=== PATIENT | male | born 1935 | race Caucasian/White ===

== ENCOUNTER 2018-08-17 13:20 | Observation (INO) | payer MEDICARE, BC ==
[~2018-08-17] VITALS: Ht 175.3 cm; Wt 102.1 kg
[~2018-08-17 13:20] MED LIST: ALBU90OI INH; ALBU90OI61 INH; ATOR20 PO; Advair Hfa 115-12 GM; CIPR500 PO; DOCSEN PO; DOCU100 PO; FINA5 PO; HYDACE5 PO; HYDR1TAB94 PO; LEVFLO500 PO; LISHYD2025 PO; LISI20 PO; MULVITMINF PO; NAPR220 PO; NORT25 PO; OMEPRAZOLE MAGN20 MG PO; OSCAL PO; PRED20 PO; PREG50 PO; PYRI100 PO; Prednisone20 MG PO; SULF500 PO; SULF500A PO; SYMBICORT; TRAM50 PO; TYLENOL PO; Zithromax250 MG PO; [UNRECOGNIZED DRUG - MIXTURE] PO
[2018-08-17 13:58] LABS: BASOPHILS ABSOLUTE AUTO 0.03 K/mm3 (0.00-0.23); BASOPHILS PERCENT AUTO 1 % (0-2); EOSINOPHILS ABSOLUTE AUTO 0.13 K/mm3 (0.00-0.68); EOSINOPHILS PERCENT AUTO 2 % (0-6); Hematocrit 46.5 % (37.0-53.0); Hemoglobin 15.6 g/dL (13.5-17.5); IMMATURE GRAN ABSOLUTE AUTO 0.01 K/mm3 (0.00-0.10); IMMATURE GRAN PERCENT AUTO 0 % (0-1); LYMPHOCYTES ABSOLUTE AUTO 1.27 K/mm3 (0.84-5.20); LYMPHOCYTES PERCENT AUTO 21 % (21-46); MONOCYTES ABSOLUTE AUTO 0.45 K/mm3 (0.16-1.47); MONOCYTES PERCENT AUTO 8 % (4-13); Mean Corpuscular HGB 31.1 pg (26.0-34.0); Mean Corpuscular HGB Conc 33.5 g/dL (31.5-36.5); Mean Corpuscular Volume 93 fL (80-100); Mean Platelet Volume 9.5 fL (9.1-12.4); NEUTROPHILS ABSOLUTE AUTO 4.15 K/mm3 (1.96-9.15); NEUTROPHILS PERCENT AUTO 69 % (41-73); Platelet Count 214 K/mm3 (150-400); Red Blood Cell Count 5.02 M/mm3 (4.30-5.90); White Blood Cell Count 6.04 K/mm3 (4.00-11.30)
[2018-08-17 14:09] LABS: International Normalized Ratio 1.09; Prothrombin Time Results 11.2 Sec (9.7-11.5)
[2018-08-17 14:40] LABS: Alanine Aminotransfer (ALT/SGP 39 U/L (12-78); Alk Phos 109 U/L (50-136); Anion Gap 8 mmol/L (6-16); Aspartate Aminotrans (AST/SGOT 30 U/L (12-37); Bilirubin, Total 0.8 mg/dL (0.1-1.0); Blood Urea Nitrogen 12 mg/dL (8-24); Bun/Creatinine Ratio 12.7 (12.0-20.0); CO2, Blood 26 mmol/L (21-32); Calcium, Blood 8.8 mg/dL (8.5-10.1); Chloride, Blood 106 mmol/L (98-108); Creatinine, Blood 0.94 mg/dL (0.60-1.20); Globulin, Blood 3.9 g/dL (2.2-4.0); Glomerular Filtration Rate >60 (60-); Glucose, Blood 142 mg/dL (70-99); Potassium, Blood 3.7 mmol/L (3.5-5.5); Sodium, Blood 140 mmol/L (136-145); Total Protein, Blood 7.9 g/dL (6.4-8.2)
[2018-08-18 05:08] LABS: BASOPHILS ABSOLUTE AUTO 0.03 K/mm3 (0.00-0.23); BASOPHILS PERCENT AUTO 1 % (0-2); EOSINOPHILS ABSOLUTE AUTO 0.15 K/mm3 (0.00-0.68); EOSINOPHILS PERCENT AUTO 3 % (0-6); Hematocrit 44.4 % (37.0-53.0); Hemoglobin 14.7 g/dL (13.5-17.5); IMMATURE GRAN ABSOLUTE AUTO 0.03 K/mm3 (0.00-0.10); IMMATURE GRAN PERCENT AUTO 1 % (0-1); LYMPHOCYTES ABSOLUTE AUTO 1.79 K/mm3 (0.84-5.20); LYMPHOCYTES PERCENT AUTO 30 % (21-46); MONOCYTES ABSOLUTE AUTO 0.53 K/mm3 (0.16-1.47); MONOCYTES PERCENT AUTO 9 % (4-13); Mean Corpuscular HGB 31.1 pg (26.0-34.0); Mean Corpuscular HGB Conc 33.1 g/dL (31.5-36.5); Mean Corpuscular Volume 94 fL (80-100); Mean Platelet Volume 9.3 fL (9.1-12.4); NEUTROPHILS ABSOLUTE AUTO 3.49 K/mm3 (1.96-9.15); NEUTROPHILS PERCENT AUTO 58 % (41-73); Platelet Count 191 K/mm3 (150-400); RDW Coefficient Variation 13.1 % (11.7-14.2); RDW Standard Deviation 44.9 fL (35.1-46.3); Red Blood Cell Count 4.73 M/mm3 (4.30-5.90); White Blood Cell Count 6.02 K/mm3 (4.00-11.30)
[2018-08-19 04:57] LABS: BASOPHILS ABSOLUTE AUTO 0.03 K/mm3 (0.00-0.23); BASOPHILS PERCENT AUTO 0 % (0-2); EOSINOPHILS ABSOLUTE AUTO 0.09 K/mm3 (0.00-0.68); EOSINOPHILS PERCENT AUTO 1 % (0-6); Hematocrit 46.7 % (37.0-53.0); Hemoglobin 15.2 g/dL (13.5-17.5); IMMATURE GRAN ABSOLUTE AUTO 0.02 K/mm3 (0.00-0.10); IMMATURE GRAN PERCENT AUTO 0 % (0-1); LYMPHOCYTES ABSOLUTE AUTO 1.55 K/mm3 (0.84-5.20); LYMPHOCYTES PERCENT AUTO 23 % (21-46); MONOCYTES ABSOLUTE AUTO 0.61 K/mm3 (0.16-1.47); MONOCYTES PERCENT AUTO 9 % (4-13); Mean Corpuscular HGB Conc 32.5 g/dL (31.5-36.5); Mean Corpuscular Volume 95 fL (80-100); Mean Platelet Volume 9.5 fL (9.1-12.4); NEUTROPHILS ABSOLUTE AUTO 4.52 K/mm3 (1.96-9.15); NEUTROPHILS PERCENT AUTO 66 % (41-73); Platelet Count 205 K/mm3 (150-400); RDW Standard Deviation 45.5 fL (35.1-46.3); Red Blood Cell Count 4.91 M/mm3 (4.30-5.90); White Blood Cell Count 6.82 K/mm3 (4.00-11.30)
[2018-08-19] MEDS ORDERED: AMLO10 PO (14:16)
== END 2018-08-19 16:12 | disposition home or self-care (01) ==
LOC: ER 13:20 → MEDS 13:21 → ER 17:45 → MEDS 17:45 → ERHOLD 17:45 → MEDS 20:03 → ERHOLD 20:03 → MEDS 08-18 01:36 → EDPENDDIS 08-19 07:34 → ENPENDDIS 08-19 07:34 → MEDS 08-19 16:12
PROVIDERS: Emergency Medicine; Internal Medicine; Internal Medicine Gastroenterology
PROC: 0DBL8ZZ Excision of Transverse Colon, Via Natural or Artificial Opening Endoscopic (ICD-10-PCS; principal; 2018-08-19 11:45)
PROC: 0DBK8ZZ Excision of Ascending Colon, Via Natural or Artificial Opening Endoscopic (ICD-10-PCS; principal; 2018-08-19 11:45)
PROC: 0DBH8ZZ Excision of Cecum, Via Natural or Artificial Opening Endoscopic (ICD-10-PCS; principal; 2018-08-19 11:45)
DX: D12.3 Benign neoplasm of transverse colon (principal); D12.2 Benign neoplasm of ascending colon; D12.0 Benign neoplasm of cecum; K57.30 Diverticulosis of large intestine without perforation or abscess without bleeding; K64.8 Other hemorrhoids; G47.33 Obstructive sleep apnea (adult) (pediatric); M06.9 Rheumatoid arthritis, unspecified; I10 Essential (primary) hypertension; E78.5 Hyperlipidemia, unspecified; N40.0 Benign prostatic hyperplasia without lower urinary tract symptoms; J44.9 Chronic obstructive pulmonary disease, unspecified; K21.9 Gastro-esophageal reflux disease without esophagitis; E11.40 Type 2 diabetes mellitus with diabetic neuropathy, unspecified; F32.9 Major depressive disorder, single episode, unspecified; M54.9 Dorsalgia, unspecified; G89.29 Other chronic pain; Z99.89 Dependence on other enabling machines and devices; Z87.891 Personal history of nicotine dependence; Z79.82 Long term (current) use of aspirin; Z79.899 Other long term (current) drug therapy
CPT/HCPCS: 36415; 46600; 80053; 82272; 82947; 85025; 85610; 85730; 86850; 86900; 86901; 88305; 93005; 93010; 94660; 94762; 99284-25; G0378; J7120

== ENCOUNTER 2018-12-29 10:17 | Day surgery (SDC) | payer MEDICARE, BC ==
[~2018-12-29] VITALS: Ht 165.1 cm; Wt 105.9 kg
[~2018-12-29 10:17] MED LIST changes: +AMLO10 PO; +FINA5; +SERT50; +TAMS.4ER
== END 2018-12-29 12:07 | disposition home or self-care (01) ==
LOC: ORSCSDS 10:17
PROVIDERS: Internal Medicine Gastroenterology
PROC: 0DBK8ZX Excision of Ascending Colon, Via Natural or Artificial Opening Endoscopic, Diagnostic (ICD-10-PCS; principal; 2018-12-29 11:30)
PROC: 0DBL8ZX Excision of Transverse Colon, Via Natural or Artificial Opening Endoscopic, Diagnostic (ICD-10-PCS; principal; 2018-12-29 11:30)
DX: K57.30 Diverticulosis of large intestine without perforation or abscess without bleeding (principal); D12.2 Benign neoplasm of ascending colon; D12.3 Benign neoplasm of transverse colon; K64.8 Other hemorrhoids; Z86.010 Personal history of colon polyps; G47.33 Obstructive sleep apnea (adult) (pediatric); I10 Essential (primary) hypertension; E78.5 Hyperlipidemia, unspecified; J44.9 Chronic obstructive pulmonary disease, unspecified; E11.9 Type 2 diabetes mellitus without complications; K21.9 Gastro-esophageal reflux disease without esophagitis; Z87.891 Personal history of nicotine dependence; E66.01 Morbid (severe) obesity due to excess calories; Z68.36 Body mass index [BMI] 36.0-36.9, adult; Z79.899 Other long term (current) drug therapy
CPT/HCPCS: 88305; J7120

== ENCOUNTER → 2019-04-12 | Outpatient (CLI) | payer MEDICARE, BC ==
[~2019-04-12] MED LIST changes: +LEVO750 PO; +POTA20PAC PO
== END | disposition home or self-care (01) ==
LOC: LAB SHORT 14:56 → PLD 14:56
DX: D48.5 Neoplasm of uncertain behavior of skin (principal)
CPT/HCPCS: 88305

== ENCOUNTER → 2019-05-31 | Outpatient (CLI) | payer MEDICARE, BC | END | disposition home or self-care (01) | LOC: LAB SHORT 08:00 → PLD 08:00 | DX: D48.5 Neoplasm of uncertain behavior of skin (principal) | CPT/HCPCS: 88305 ==

== ENCOUNTER 2019-06-20 14:13 | Emergency (ER) | payer MEDICARE, BC ==
[~2019-06-20] VITALS: Ht 175.3 cm; Wt 102.1 kg
[~2019-06-20 14:13] MED LIST changes: -LEVO750 PO; -POTA20PAC PO
[2019-06-20 14:57] LABS: BASOPHILS ABSOLUTE AUTO 0.02 K/mm3 (0.00-0.23); BASOPHILS PERCENT AUTO 0 % (0-2); EOSINOPHILS ABSOLUTE AUTO 0.01 K/mm3 (0.00-0.68); EOSINOPHILS PERCENT AUTO 0 % (0-6); Hematocrit 47.9 % (37.0-53.0); IMMATURE GRAN ABSOLUTE AUTO 0.06 K/mm3 (0.00-0.10); IMMATURE GRAN PERCENT AUTO 1 % (0-1); LYMPHOCYTES ABSOLUTE AUTO 1.32 K/mm3 (0.84-5.20); LYMPHOCYTES PERCENT AUTO 14 % (21-46); MONOCYTES PERCENT AUTO 9 % (4-13); Mean Corpuscular HGB 30.8 pg (26.0-34.0); Mean Corpuscular HGB Conc 33.4 g/dL (31.5-36.5); Mean Corpuscular Volume 92 fL (80-100); Mean Platelet Volume 9.2 fL (9.1-12.4); NEUTROPHILS ABSOLUTE AUTO 7.43 K/mm3 (1.96-9.15); NEUTROPHILS PERCENT AUTO 76 % (41-73); Platelet Count 289 K/mm3 (150-400); RDW Coefficient Variation 12.9 % (11.7-14.2); RDW Standard Deviation 43.5 fL (35.1-46.3); White Blood Cell Count 9.74 K/mm3 (4.00-11.30)
[2019-06-20 15:20] LABS: Alanine Aminotransfer (ALT/SGP 56 U/L (12-78); Albumin, Blood 4.3 g/dL (3.4-5.0); Alk Phos 111 U/L (50-136); Anion Gap 8 mmol/L (6-16); Aspartate Aminotrans (AST/SGOT 42 U/L (12-37); Bilirubin, Total 0.7 mg/dL (0.1-1.0); Blood Urea Nitrogen 17 mg/dL (8-24); Bun/Creatinine Ratio 18.7 (12.0-20.0); CO2, Blood 24 mmol/L (21-32); Chloride, Blood 105 mmol/L (98-108); Creatinine, Blood 0.91 mg/dL (0.60-1.20); Globulin, Blood 4.1 g/dL (2.2-4.0); Glomerular Filtration Rate >60 (60-); Glucose, Blood 210 mg/dL (70-99); Potassium, Blood 3.4 mmol/L (3.5-5.5); Sodium, Blood 137 mmol/L (136-145); Total Protein, Blood 8.4 g/dL (6.4-8.2); Troponin I <0.015 ng/mL (0.000-0.040)
[2019-06-20] MEDS ORDERED: POTA20PAC PO (16:21)
[2019-06-20] MEDS ORDERED: LEVO750 PO (16:21)
== END 2019-06-20 16:36 | disposition home or self-care (01) ==
LOC: ER 14:13
PROVIDERS: Physician Assistant
DX: J18.9 Pneumonia, unspecified organism (principal); E87.6 Hypokalemia; Z79.899 Other long term (current) drug therapy; J44.9 Chronic obstructive pulmonary disease, unspecified; E11.9 Type 2 diabetes mellitus without complications
CPT/HCPCS: 36415; 71046; 80053; 83880; 84484; 85025; 93005; 93010; 99285-25

== ENCOUNTER 2019-08-25 11:14 | Emergency (ER) | payer MEDICARE, BC ==
[~2019-08-25] VITALS: Ht 175.3 cm; Wt 102.1 kg
[~2019-08-25 11:14] MED LIST changes: +LEVO750 PO; +POTA20PAC PO
== END 2019-08-25 13:28 | disposition home or self-care (01) ==
LOC: ER 11:14
DX: M25.561 Pain in right knee (principal); Z79.899 Other long term (current) drug therapy; J44.9 Chronic obstructive pulmonary disease, unspecified; E11.9 Type 2 diabetes mellitus without complications; Z87.891 Personal history of nicotine dependence
CPT/HCPCS: 73562-RT; 99283-25

== ENCOUNTER 2020-05-20 19:19 | Emergency (ER) | payer MEDICARE, BC ==
[~2020-05-20] VITALS: Ht 175.3 cm; Wt 104.3 kg
[2020-05-20 20:01] LABS: BASOPHILS ABSOLUTE AUTO 0.02 K/mm3 (0.00-0.23); BASOPHILS PERCENT AUTO 0 % (0-2); EOSINOPHILS PERCENT AUTO 1 % (0-6); Hematocrit 49.2 % (37.0-53.0); Hemoglobin 16.2 g/dL (13.5-17.5); IMMATURE GRAN ABSOLUTE AUTO 0.03 K/mm3 (0.00-0.10); IMMATURE GRAN PERCENT AUTO 0 % (0-1); LYMPHOCYTES ABSOLUTE AUTO 1.41 K/mm3 (0.84-5.20); LYMPHOCYTES PERCENT AUTO 17 % (21-46); MONOCYTES ABSOLUTE AUTO 0.63 K/mm3 (0.16-1.47); MONOCYTES PERCENT AUTO 8 % (4-13); Mean Corpuscular HGB 30.8 pg (26.0-34.0); Mean Corpuscular HGB Conc 32.9 g/dL (31.5-36.5); Mean Corpuscular Volume 94 fL (80-100); Mean Platelet Volume 9.6 fL (9.1-12.4); NEUTROPHILS ABSOLUTE AUTO 6.21 K/mm3 (1.96-9.15); NEUTROPHILS PERCENT AUTO 74 % (41-73); Platelet Count 178 K/mm3 (150-400); RDW Coefficient Variation 13.2 % (11.7-14.2); RDW Standard Deviation 44.8 fL (35.1-46.3); Red Blood Cell Count 5.26 M/mm3 (4.30-5.90)
[2020-05-20 20:19] LABS: Alanine Aminotransfer (ALT/SGP 49 U/L (12-78); Albumin, Blood 4.1 g/dL (3.4-5.0); Albumin/Globulin Ratio 1.1 (0.8-1.8); Alk Phos 86 U/L (50-136); Anion Gap 6 mmol/L (6-16); Aspartate Aminotrans (AST/SGOT 34 U/L (12-37); Bilirubin, Total 0.5 mg/dL (0.1-1.0); Blood Urea Nitrogen 19 mg/dL (8-24); Bun/Creatinine Ratio 18.8 (12.0-20.0); CO2, Blood 27 mmol/L (21-32); Calcium, Blood 9.2 mg/dL (8.5-10.1); Chloride, Blood 109 mmol/L (98-108); Creatinine, Blood 1.01 mg/dL (0.60-1.20); Globulin, Blood 3.9 g/dL (2.2-4.0); Glomerular Filtration Rate >60 (60-); Glucose, Blood 147 mg/dL (70-99); Sodium, Blood 142 mmol/L (136-145)
[2020-05-20 20:31] LABS: Source, Urine Clean Catch
[2020-05-20 20:34] LABS: Blood, Urine 1+ (Neg); Glucose Qualitative, Urine Neg (Neg); Ketones, Urine 1+ (Neg); Leukocyte Esterase, Urine 1+ (Neg); Nitrite, Urine Neg (Neg); Protein, Urine 3+ (Neg); Specific Gravity, Urine 1.025 (1.003-1.022); Urobilinogen, Urine NORM (Normal)
[2020-05-20 20:41] LABS: Appearance, Urine Clear (Clear); Bilirubin, Urine 1+ (Neg); Color, Urine Yellow (P-Yellow); White Blood Cells, Urine 0-2 /hpf (0-5)
[2020-05-20 20:42] LABS: Bacteria Rare /hpf; Mucus Mod (0-Heavy); Red Blood Cells, Urine Not Seen /hpf (0-2); Squamous Epithelial Cells Rare /hpf (Few)
[2020-05-20] MEDS ORDERED: Cipro500 MG PO (23:21)
[2020-05-20] MEDS ORDERED: ONDA4ODT MM (23:21)
[2020-05-20] MEDS ORDERED: Ultram50 MG PO (23:21)
== END 2020-05-20 23:38 | disposition home or self-care (01) ==
LOC: ER 19:19
PROVIDERS: Emergency Medicine
DX: A09 Infectious gastroenteritis and colitis, unspecified (principal); Z79.899 Other long term (current) drug therapy; J44.9 Chronic obstructive pulmonary disease, unspecified; E11.9 Type 2 diabetes mellitus without complications; Z87.891 Personal history of nicotine dependence
CPT/HCPCS: 36415; 71045; 80053; 81001; 85025; 87086; 96360; 99284-25; J7030; U0002

== ENCOUNTER → 2020-07-24 | Outpatient (CLI) | payer MEDICARE, BC ==
[~2020-07-24] MED LIST changes: +Cipro500 MG PO; +DOXY100 PO; +ONDA4ODT MM; +Ultram50 MG PO
== END | disposition home or self-care (01) ==
LOC: PLD 15:45 → LAB SHORT 15:45
DX: C44.41 Basal cell carcinoma of skin of scalp and neck (principal)
CPT/HCPCS: 88305

== ENCOUNTER → 2020-09-28 | Outpatient (CLI) | payer MEDICARE, BC ==
[2020-09-28 17:06] LABS: BASOPHILS ABSOLUTE AUTO 0.03 K/mm3 (0.00-0.23); BASOPHILS PERCENT AUTO 1 % (0-2); EOSINOPHILS ABSOLUTE AUTO 0.14 K/mm3 (0.00-0.68); EOSINOPHILS PERCENT AUTO 2 % (0-6); Hematocrit 45.7 % (37.0-53.0); Hemoglobin 15.5 g/dL (13.5-17.5); IMMATURE GRAN ABSOLUTE AUTO 0.01 K/mm3 (0.00-0.10); IMMATURE GRAN PERCENT AUTO 0 % (0-1); LYMPHOCYTES ABSOLUTE AUTO 1.28 K/mm3 (0.84-5.20); LYMPHOCYTES PERCENT AUTO 20 % (21-46); MONOCYTES ABSOLUTE AUTO 0.61 K/mm3 (0.16-1.47); MONOCYTES PERCENT AUTO 9 % (4-13); Mean Corpuscular HGB 31.4 pg (26.0-34.0); Mean Corpuscular HGB Conc 33.9 g/dL (31.5-36.5); Mean Corpuscular Volume 93 fL (80-100); Mean Platelet Volume 9.6 fL (9.1-12.4); NEUTROPHILS ABSOLUTE AUTO 4.45 K/mm3 (1.96-9.15); NEUTROPHILS PERCENT AUTO 68 % (41-73); Platelet Count 249 K/mm3 (150-400); RDW Coefficient Variation 12.9 % (11.7-14.2); Red Blood Cell Count 4.94 M/mm3 (4.30-5.90); White Blood Cell Count 6.52 K/mm3 (4.00-11.30)
[2020-09-28 17:12] LABS: Anion Gap 8 mmol/L (6-16); Blood Urea Nitrogen 13 mg/dL (8-24); Bun/Creatinine Ratio 13.7 (12.0-20.0); CO2, Blood 29 mmol/L (21-32); Calcium, Blood 9.2 mg/dL (8.5-10.1); Chloride, Blood 103 mmol/L (98-108); Creatinine, Blood 0.95 mg/dL (0.60-1.20); Glomerular Filtration Rate >60 (60-); Glucose, Blood 163 mg/dL (70-99); Potassium, Blood 3.7 mmol/L (3.5-5.5); Sodium, Blood 140 mmol/L (136-145)
== END | disposition home or self-care (01) ==
LOC: LAB EV 16:58 → LAB SHORT 16:58
PROVIDERS: Physician Assistant Surgical
DX: R05 Cough (principal)
CPT/HCPCS: 80048; 85025

== ENCOUNTER → 2021-01-08 | Outpatient (CLI) | payer MEDICARE, BC | END | disposition home or self-care (01) | LOC: LAB SHORT 08:15 → PLD 08:15 | DX: C44.41 Basal cell carcinoma of skin of scalp and neck (principal) | CPT/HCPCS: 88305 ==

== ENCOUNTER → 2021-02-13 | Outpatient (CLI) | payer MEDICARE, BC | LOC: LAB SHORT 09:20 → PLD 09:20 | DX: C44.41 Basal cell carcinoma of skin of scalp and neck (principal) | CPT/HCPCS: 88305 ==

== ENCOUNTER → 2021-04-24 | Outpatient (CLI) | payer MEDICARE, BC | LOC: LAB SHORT 14:47 → LAB 14:47 | DX: C44.519 Basal cell carcinoma of skin of other part of trunk (principal) | CPT/HCPCS: 88305 ==

== ENCOUNTER → 2021-12-31 | Outpatient (CLI) | payer MEDICARE, BC ==
[2021-12-31 17:51] LABS: BASOPHILS ABSOLUTE AUTO 0.01 K/mm3 (0.00-0.23); BASOPHILS PERCENT AUTO 0 % (0-2); EOSINOPHILS ABSOLUTE AUTO 0.09 K/mm3 (0.00-0.68); EOSINOPHILS PERCENT AUTO 1 % (0-6); Hematocrit 41.8 % (37.0-53.0); Hemoglobin 14.4 g/dL (13.5-17.5); IMMATURE GRAN ABSOLUTE AUTO 0.08 K/mm3 (0.00-0.10); IMMATURE GRAN PERCENT AUTO 1 % (0-1); LYMPHOCYTES ABSOLUTE AUTO 0.89 K/mm3 (0.84-5.20); LYMPHOCYTES PERCENT AUTO 8 % (21-46); MONOCYTES ABSOLUTE AUTO 0.59 K/mm3 (0.16-1.47); MONOCYTES PERCENT AUTO 5 % (4-13); Mean Corpuscular HGB 32.4 pg (26.0-34.0); Mean Corpuscular HGB Conc 34.4 g/dL (31.5-36.5); Mean Corpuscular Volume 94 fL (80-100); NEUTROPHILS ABSOLUTE AUTO 9.23 K/mm3 (1.96-9.15); NEUTROPHILS PERCENT AUTO 85 % (41-73); Platelet Count 236 K/mm3 (150-400); RDW Coefficient Variation 12.6 % (11.7-14.2); RDW Standard Deviation 43.2 fL (35.1-46.3); Red Blood Cell Count 4.45 M/mm3 (4.30-5.90); White Blood Cell Count 10.89 K/mm3 (4.00-11.30)
[2021-12-31 18:09] LABS: Alanine Aminotransfer (ALT/SGP 45 U/L (12-78); Albumin, Blood 4.6 g/dL (3.4-5.0); Albumin/Globulin Ratio 1.7 (0.8-1.8); Alk Phos 90 U/L (40-126); Anion Gap 12 mmol/L (6-16); Aspartate Aminotrans (AST/SGOT 26 U/L (12-37); Bilirubin, Total 0.5 mg/dL (0.1-1.0); Blood Urea Nitrogen 25 mg/dL (8-24); CO2, Blood 26 mmol/L (21-32); Calcium, Blood 9.2 mg/dL (8.5-10.1); Chloride, Blood 105 mmol/L (98-108); Creatinine, Blood 1.04 mg/dL (0.60-1.20); Globulin, Blood 2.7 g/dL (2.2-4.0); Glomerular Filtration Rate >60 (60-); Glucose, Blood 117 mg/dL (70-99); Potassium, Blood 4.4 mmol/L (3.5-5.5); Sodium, Blood 143 mmol/L (136-145); Thyroid Stimulating Hormone 2.692 uIU/mL (0.360-4.800); Total Protein, Blood 7.3 g/dL (6.4-8.2)
== END | disposition home or self-care (01) ==
LOC: LAB SHORT 17:46
PROVIDERS: Physician Assistant
DX: R53.83 Other fatigue (principal)
CPT/HCPCS: 80053; 84443; 85025

== ENCOUNTER 2022-01-23 15:40 | Emergency (ER) | payer MEDICARE, BC ==
[~2022-01-23] VITALS: Ht 175.3 cm; Wt 102.1 kg
[2022-01-23 16:27] LABS: BASOPHILS ABSOLUTE AUTO 0.03 K/mm3 (0.00-0.23); BASOPHILS PERCENT AUTO 0 % (0-2); EOSINOPHILS ABSOLUTE AUTO 0.16 K/mm3 (0.00-0.68); EOSINOPHILS PERCENT AUTO 2 % (0-6); Hematocrit 43.2 % (37.0-53.0); Hemoglobin 14.5 g/dL (13.5-17.5); IMMATURE GRAN ABSOLUTE AUTO 0.05 K/mm3 (0.00-0.10); IMMATURE GRAN PERCENT AUTO 1 % (0-1); LYMPHOCYTES ABSOLUTE AUTO 1.16 K/mm3 (0.84-5.20); LYMPHOCYTES PERCENT AUTO 14 % (21-46); MONOCYTES PERCENT AUTO 6 % (4-13); Mean Corpuscular HGB 31.8 pg (26.0-34.0); Mean Corpuscular HGB Conc 33.6 g/dL (31.5-36.5); Mean Corpuscular Volume 95 fL (80-100); Mean Platelet Volume 9.3 fL (9.1-12.4); NEUTROPHILS ABSOLUTE AUTO 6.36 K/mm3 (1.96-9.15); NEUTROPHILS PERCENT AUTO 77 % (41-73); Platelet Count 225 K/mm3 (150-400); RDW Standard Deviation 45.1 fL (35.1-46.3); Red Blood Cell Count 4.56 M/mm3 (4.30-5.90); White Blood Cell Count 8.26 K/mm3 (4.00-11.30)
[2022-01-23 16:50] LABS: Alanine Aminotransfer (ALT/SGP 42 U/L (12-78); Albumin, Blood 4.4 g/dL (3.4-5.0); Albumin/Globulin Ratio 1.3 (0.8-1.8); Alk Phos 77 U/L (50-136); Anion Gap 4 mmol/L (6-16); Aspartate Aminotrans (AST/SGOT 32 U/L (12-37); Bilirubin, Total 0.7 mg/dL (0.1-1.0); Blood Urea Nitrogen 23 mg/dL (8-24); Bun/Creatinine Ratio 21.5 (12.0-20.0); CO2, Blood 26 mmol/L (21-32); Calcium, Blood 9.2 mg/dL (8.5-10.1); Chloride, Blood 107 mmol/L (98-108); Creatinine, Blood 1.07 mg/dL (0.60-1.20); Globulin, Blood 3.3 g/dL (2.2-4.0); Glomerular Filtration Rate >60 (60-); Glucose, Blood 151 mg/dL (70-99); Potassium, Blood 4.4 mmol/L (3.5-5.5); Sodium, Blood 137 mmol/L (136-145); Total Protein, Blood 7.7 g/dL (6.4-8.2)
[2022-01-23] MEDS ORDERED: OMEP20ER (17:30)
[2022-01-24] MEDS ORDERED: ANORO ELLIPTA1 EAC1 INH (09:44)
[2022-01-24] MEDS ORDERED: FINA5 PO (09:45)
[2022-01-24] MEDS ORDERED: Prinivil10 MG PO (09:45)
[2022-01-24] MEDS ORDERED: ZOLOFT100 M9 PO (09:47)
[2022-01-24] MEDS ORDERED: PREGABALIN75 MG PO (09:49)
[2022-01-24] MEDS ORDERED: TRAM50 PO (09:50)
[2022-01-24] MEDS ORDERED: ATOR40TA PO (09:51)
[2022-01-24] MEDS ORDERED: TAMSULOSIN HCL0.4 M1 PO (09:52)
[2022-01-24] MEDS ORDERED: Prilosec Otc20 MG PO (09:52)
== END 2022-01-23 18:06 | disposition home or self-care (01) ==
LOC: ER 15:40
PROVIDERS: Physician Assistant
DX: E87.8 Other disorders of electrolyte and fluid balance, not elsewhere classified (principal); E11.9 Type 2 diabetes mellitus without complications; J44.9 Chronic obstructive pulmonary disease, unspecified; Z87.891 Personal history of nicotine dependence; Z79.899 Other long term (current) drug therapy
CPT/HCPCS: 36415; 70450; 80053; 85025; 99284-25

== ENCOUNTER 2022-01-24 08:56 | Emergency (ER) | payer MEDICARE, BC ==
[~2022-01-24] VITALS: Ht 175.3 cm; Wt 102.1 kg
[~2022-01-24 08:56] MED LIST changes: +OMEP20ER
[2022-01-24] MEDS ORDERED: ANORO ELLIPTA1 EAC1 INH (09:44)
[2022-01-24] MEDS ORDERED: Prinivil10 MG PO (09:45)
[2022-01-24] MEDS ORDERED: FINA5 PO (09:45)
[2022-01-24] MEDS ORDERED: ZOLOFT100 M9 PO (09:47)
[2022-01-24] MEDS ORDERED: PREGABALIN75 MG PO (09:49)
[2022-01-24] MEDS ORDERED: TRAM50 PO (09:50)
[2022-01-24] MEDS ORDERED: ATOR40TA PO (09:51)
[2022-01-24] MEDS ORDERED: TAMSULOSIN HCL0.4 M1 PO (09:52)
[2022-01-24] MEDS ORDERED: Prilosec Otc20 MG PO (09:52)
== END 2022-01-24 10:51 | disposition home or self-care (01) ==
LOC: ER 08:56
DX: E87.8 Other disorders of electrolyte and fluid balance, not elsewhere classified (principal); J44.9 Chronic obstructive pulmonary disease, unspecified; E11.9 Type 2 diabetes mellitus without complications; Z87.891 Personal history of nicotine dependence
CPT/HCPCS: 99281

== ENCOUNTER → 2022-05-19 | Outpatient (CLI) | payer MEDICARE, BC ==
[~2022-05-19] MED LIST changes: +ANORO ELLIPTA1 EAC1 INH; +ATOR40TA PO; +PREGABALIN75 MG PO; +Prilosec Otc20 MG PO; +Prinivil10 MG PO; +TAMSULOSIN HCL0.4 M1 PO; +ZOLOFT100 M9 PO
== END | disposition home or self-care (01) ==
LOC: LAB SHORT 08:02 → PLD 08:02
DX: C44.41 Basal cell carcinoma of skin of scalp and neck (principal)
CPT/HCPCS: 88305

== ENCOUNTER → 2022-06-09 | Outpatient (CLI) | payer MEDICARE, BC | END | disposition home or self-care (01) | LOC: PLD 15:42 → LAB SHORT 15:42 | DX: C44.41 Basal cell carcinoma of skin of scalp and neck (principal) | CPT/HCPCS: 88305 ==

== ENCOUNTER → 2023-01-28 | Outpatient (CLI) | payer MEDICARE, BC | END | disposition home or self-care (01) | LOC: PLD 14:40 → LAB SHORT 14:40 | DX: C44.319 Basal cell carcinoma of skin of other parts of face (principal); L57.0 Actinic keratosis | CPT/HCPCS: 88305 ==

== ENCOUNTER → 2023-06-10 | Outpatient (CLI) | payer MEDICARE, BC ==
[2023-06-10 16:18] LABS: BASOPHILS ABSOLUTE AUTO 0.03 K/mm3 (0.00-0.23); BASOPHILS PERCENT AUTO 0 % (0-2); EOSINOPHILS ABSOLUTE AUTO 0.11 K/mm3 (0.00-0.68); EOSINOPHILS PERCENT AUTO 1 % (0-6); Hematocrit 44.1 % (37.0-53.0); Hemoglobin 15.4 g/dL (13.5-17.5); IMMATURE GRAN ABSOLUTE AUTO 0.22 K/mm3 (0.00-0.10); IMMATURE GRAN PERCENT AUTO 2 % (0-1); LYMPHOCYTES ABSOLUTE AUTO 1.19 K/mm3 (0.84-5.20); LYMPHOCYTES PERCENT AUTO 11 % (21-46); MONOCYTES ABSOLUTE AUTO 0.83 K/mm3 (0.16-1.47); MONOCYTES PERCENT AUTO 8 % (4-13); Mean Corpuscular HGB 32.1 pg (26.0-34.0); Mean Corpuscular HGB Conc 34.9 g/dL (31.5-36.5); Mean Corpuscular Volume 92 fL (80-100); Mean Platelet Volume 9.1 fL (9.1-12.4); NEUTROPHILS PERCENT AUTO 78 % (41-73); Platelet Count 252 K/mm3 (150-400); RDW Standard Deviation 43.8 fL (35.1-46.3); White Blood Cell Count 10.58 K/mm3 (4.00-11.30)
[2023-06-10 16:34] LABS: Albumin, Blood 3.7 g/dL (3.4-5.0); Albumin/Globulin Ratio 1.1 (0.8-1.8); Bilirubin, Total 0.4 mg/dL (0.1-1.0); Calcium, Blood 8.8 mg/dL (8.5-10.1); Creatinine, Blood 1.23 mg/dL (0.60-1.20); Globulin, Blood 3.5 g/dL (2.2-4.0); Potassium, Blood 3.7 mmol/L (3.5-5.5); Thyroid Stimulating Hormone 3.197 uIU/mL (0.360-4.800); Total Protein, Blood 7.2 g/dL (6.4-8.2)
== END | disposition home or self-care (01) ==
LOC: LAB SHORT 16:10 → LAB 16:10
PROVIDERS: Physician Assistant
DX: R53.83 Other fatigue (principal)
CPT/HCPCS: 80053; 83880; 84443; 85025

== ENCOUNTER 2024-03-30 18:55 | Emergency (ER) | payer MEDICARE, BC ==
[~2024-03-30] VITALS: Ht 172.7 cm; Wt 97.5 kg
[~2024-03-30 18:55] MED LIST changes: +ACET500 PO; +AMOCLA875 PO; +FLUTICASONE-VI1 EACH INH; +GUAI600T33 PO; +IBUP400 PO; +OMEP20ER PO; +QVAR REDIHALE10.6 G3
[2024-03-30] MEDS ORDERED: BREO ELLIPTA 11 EAC1 IH (19:20)
[2024-03-30] MEDS ORDERED: ZOLOFT10013 PO (19:21)
[2024-03-30 19:34] LABS: Bilirubin, Total 0.9 mg/dL (0.1-1.0); Bun/Creatinine Ratio 13.2 (12.0-20.0); Calcium, Blood 9.4 mg/dL (8.5-10.1); Creatinine, Blood 0.91 mg/dL (0.60-1.20); Globulin, Blood 4.1 g/dL (2.2-4.0); Potassium, Blood 4.1 mmol/L (3.5-5.5); Total Protein, Blood 8.1 g/dL (6.4-8.2)
[2024-03-30 19:44] LABS: BASOPHILS ABSOLUTE AUTO 0.04 K/mm3 (0.00-0.23); BASOPHILS PERCENT AUTO 0 % (0-2); EOSINOPHILS ABSOLUTE AUTO 0.04 K/mm3 (0.00-0.68); EOSINOPHILS PERCENT AUTO 0 % (0-6); Hematocrit 43.2 % (37.0-53.0); IMMATURE GRAN ABSOLUTE AUTO 0.04 K/mm3 (0.00-0.10); IMMATURE GRAN PERCENT AUTO 0 % (0-1); LYMPHOCYTES ABSOLUTE AUTO 0.85 K/mm3 (0.84-5.20); LYMPHOCYTES PERCENT AUTO 8 % (21-46); MONOCYTES ABSOLUTE AUTO 0.68 K/mm3 (0.16-1.47); MONOCYTES PERCENT AUTO 7 % (4-13); Mean Corpuscular HGB Conc 32.4 g/dL (31.5-36.5); Mean Corpuscular Volume 96 fL (80-100); Mean Platelet Volume 10.2 fL (9.1-12.4); NEUTROPHILS ABSOLUTE AUTO 8.43 K/mm3 (1.96-9.15); NEUTROPHILS PERCENT AUTO 84 % (41-73); Platelet Count 254 K/mm3 (150-400); RDW Standard Deviation 49.6 fL (35.1-46.3); Red Blood Cell Count 4.51 M/mm3 (4.30-5.90); White Blood Cell Count 10.08 K/mm3 (4.00-11.30)
[2024-03-30 19:57] LABS: Influenza A, PCR NEGATIVE (NEGATIVE); Influenza B, PCR NEGATIVE (NEGATIVE); Resp Syncytial Virus, PCR NEGATIVE (NEGATIVE); SARS-Cov-2 (COVID-19) PCR, MMC NEGATIVE (NEGATIVE)
[2024-03-30] MEDS ORDERED: DELTASONE20 MG PO (20:54)
[2024-03-30] MEDS ORDERED: AZIT250 PO (20:54)
[2024-03-30] MEDS ORDERED: Azithromycin 250 MG Tab PO ONE (20:55)
[2024-03-30] MEDS ORDERED: PredniSONE 20 MG Tab PO ONE (20:55)
[2024-03-30 21:00] VITALS: BP 156/80
== END 2024-03-30 21:30 | disposition home or self-care (01) ==
LOC: ER 18:55
PROVIDERS: Emergency Medicine
DX: J44.1 Chronic obstructive pulmonary disease with (acute) exacerbation (principal); M10.9 Gout, unspecified; E11.9 Type 2 diabetes mellitus without complications; M19.90 Unspecified osteoarthritis, unspecified site; I10 Essential (primary) hypertension; E78.5 Hyperlipidemia, unspecified; Z87.891 Personal history of nicotine dependence
CPT/HCPCS: 0241U; 71045; 80053; 85025; 93005; 93010; 99285-25; A9270; J7512

== ENCOUNTER 2024-08-23 17:44 | Emergency (ER) | payer MEDICARE, BC ==
[~2024-08-23] VITALS: Ht 175.3 cm; Wt 93.0 kg
[~2024-08-23 17:44] MED LIST changes: +AZIT250 PO; +BREO ELLIPTA 11 EAC1 INH; +DELTASONE20 MG PO; +ZOLOFT10013 PO
[2024-08-23] MEDS ORDERED: Ipratropium/Albuterol SulF 2.5-0.5MG/3 ML Amp INH ONE (18:00)
[2024-08-23] MEDS ORDERED: Ondansetron HCl 2 MG / ML 2ML Vial IV ONE (18:05)
[2024-08-23 18:14] LABS: BASOPHILS ABSOLUTE AUTO 0.03 K/mm3 (0.00-0.23); BASOPHILS PERCENT AUTO 0 % (0-2); EOSINOPHILS ABSOLUTE AUTO 0.02 K/mm3 (0.00-0.68); EOSINOPHILS PERCENT AUTO 0 % (0-6); Hematocrit 41.4 % (37.0-53.0); Hemoglobin 13.9 g/dL (13.5-17.5); IMMATURE GRAN ABSOLUTE AUTO 0.03 K/mm3 (0.00-0.10); IMMATURE GRAN PERCENT AUTO 0 % (0-1); LYMPHOCYTES ABSOLUTE AUTO 0.43 K/mm3 (0.84-5.20); LYMPHOCYTES PERCENT AUTO 6 % (21-46); MONOCYTES PERCENT AUTO 10 % (4-13); Mean Corpuscular HGB 31.9 pg (26.0-34.0); Mean Corpuscular HGB Conc 33.6 g/dL (31.5-36.5); Mean Corpuscular Volume 95 fL (80-100); Mean Platelet Volume 9.6 fL (9.1-12.4); NEUTROPHILS ABSOLUTE AUTO 6.09 K/mm3 (1.96-9.15); NEUTROPHILS PERCENT AUTO 83 % (41-73); Platelet Count 187 K/mm3 (150-400); RDW Coefficient Variation 12.4 % (11.7-14.2); RDW Standard Deviation 43.2 fL (35.1-46.3); Red Blood Cell Count 4.36 M/mm3 (4.30-5.90)
[2024-08-23] MEDS ORDERED: Acetaminophen 325 MG TABLET PO ONE (18:45)
[2024-08-23 19:05] LABS: Free Thyroxine 0.76 ng/dL (0.70-1.60); Magnesium, Blood 1.9 mg/dL (1.6-2.4); Thyroid Stimulating Hormone 3.17 uIU/mL (0.360-4.800)
[2024-08-23 19:06] LABS: Albumin, Blood 3.7 g/dL (3.4-5.0); Bilirubin, Total 0.5 mg/dL (0.1-1.0); Calcium, Blood 9.1 mg/dL (8.5-10.1); Creatinine, Blood 0.85 mg/dL (0.60-1.20); Globulin, Blood 3.8 g/dL (2.2-4.0); Potassium, Blood 3.7 mmol/L (3.5-5.5); Total Protein, Blood 7.5 g/dL (6.4-8.2)
[2024-08-23 19:21] LABS: Influenza A, PCR NEGATIVE (NEGATIVE); Influenza B, PCR NEGATIVE (NEGATIVE); Resp Syncytial Virus, PCR NEGATIVE (NEGATIVE)
[2024-08-23 20:45] LABS: SARS-Cov-2 (COVID-19) PCR, MMC POSITIVE (NEGATIVE)
[2024-08-23 21:00] VITALS: BP 142/84
== END 2024-08-23 22:41 | disposition home or self-care (01) ==
LOC: ER 17:44
PROVIDERS: Student in an Organized Health Care Education/Training Program
DX: U07.1 COVID-19 (principal); J06.9 Acute upper respiratory infection, unspecified; R06.02 Shortness of breath; E11.9 Type 2 diabetes mellitus without complications; E78.5 Hyperlipidemia, unspecified; I10 Essential (primary) hypertension; Z87.09 Personal history of other diseases of the respiratory system; Z87.891 Personal history of nicotine dependence; Z79.52 Long term (current) use of systemic steroids; Z79.51 Long term (current) use of inhaled steroids; Z79.899 Other long term (current) drug therapy
CPT/HCPCS: 0241U; 71045; 80053; 83735; 83880; 84439; 84443; 84484; 85025; 93005; 93010; 94640; 94664; 96374; 99285-25; A9270; J2405

== ENCOUNTER 2024-08-28 05:55 | Inpatient (IN) | payer MEDICARE, BC ==
[~2024-08-28] VITALS: Ht 175.3 cm; Wt 93.0 kg
[2024-08-28] MEDS ORDERED: Ipratropium/Albuterol SulF 2.5-0.5MG/3 ML Amp INH PRN (06:15)
[2024-08-28 06:43] LABS: BASOPHILS ABSOLUTE AUTO 0.01 K/mm3 (0.00-0.23); BASOPHILS PERCENT AUTO 0 % (0-2); EOSINOPHILS PERCENT AUTO 0 % (0-6); IMMATURE GRAN ABSOLUTE AUTO 0.01 K/mm3 (0.00-0.10); IMMATURE GRAN PERCENT AUTO 0 % (0-1); LYMPHOCYTES ABSOLUTE AUTO 0.65 K/mm3 (0.84-5.20); LYMPHOCYTES PERCENT AUTO 13 % (21-46); MONOCYTES ABSOLUTE AUTO 0.38 K/mm3 (0.16-1.47); MONOCYTES PERCENT AUTO 8 % (4-13); Mean Corpuscular HGB 31.5 pg (26.0-34.0); Mean Corpuscular HGB Conc 34.1 g/dL (31.5-36.5); Mean Corpuscular Volume 92 fL (80-100); Mean Platelet Volume 9.9 fL (9.1-12.4); NEUTROPHILS ABSOLUTE AUTO 3.83 K/mm3 (1.96-9.15); NEUTROPHILS PERCENT AUTO 79 % (41-73); Platelet Count 137 K/mm3 (150-400); RDW Standard Deviation 41.1 fL (35.1-46.3); Red Blood Cell Count 4.44 M/mm3 (4.30-5.90); White Blood Cell Count 4.88 K/mm3 (4.00-11.30)
[2024-08-28 07:14] LABS: Albumin, Blood 3.6 g/dL (3.4-5.0); Albumin/Globulin Ratio 0.9 (0.8-1.8); Bilirubin, Total 0.7 mg/dL (0.1-1.0); Globulin, Blood 3.9 g/dL (2.2-4.0); Potassium, Blood 3.5 mmol/L (3.5-5.5); Total Protein, Blood 7.5 g/dL (6.4-8.2)
[2024-08-28] MEDS ORDERED: MethylPREDNISolone Sod Succ 125 MG Vial IV ONE (07:40)
[2024-08-28] MEDS ORDERED: Albuterol 2.5 MG/3 ML VIAL INH PRN (11:30)
[2024-08-28] MEDS ORDERED: FLU VACC TS2024-25(6MOS UP)/PF 45 MCG/0.5 ML SYRINGE IM SCH (11:30)
[2024-08-28] MEDS ORDERED: Ipratropium/Albuterol SulF 2.5-0.5MG/3 ML Amp INH SCH (11:30)
[2024-08-28] MEDS ORDERED: Remdesivir (EUA) 200 MG in NS 250 ML IV ONE (11:40)
[2024-08-28] MEDS ORDERED: MethylPREDNISolone Sod Succ 40 MG VIAL IV SCH (12:00)
--- NOTE | 2024-08-28 13:12 | NUR ---
CHART REVIEW FOR DATALOAD IN ANTICIPATION OF ADMIT TO MEDICAL FLOOR.
[2024-08-28] MEDS ORDERED: TraMADol HCl 50 MG Tab PO PRN (15:40)
[2024-08-28 15:44] VITALS: BP 163/65
[2024-08-28] MEDS ORDERED: CefTRIAXone Sodium 1,000 MG in NS 100 ML IV SCH (16:00)
[2024-08-28] MEDS ORDERED: Mometasone/Formoterol MDI 100/5 mcg 13 GM INH SCH (16:00)
--- NOTE | 2024-08-28 17:43 | NUR ---
NURSING NOTE: PT ARRIVED ~1500 FROM ER. SLID INTO MED FLOOR BED WITHOUT ISSUE. PT AOX4. HAS INJURY ON RIGHT WRIST FROM A FALL AT HOME. BANDAGE CHANGED. PT HARD OF HEARING BUT CAPABLE OF ANSWERING QUESTIONS AND WILLING TO ASSIST IN CARE WHEN POSSIBLE.
--- NOTE | 2024-08-28 17:44 | NUR ---
SHIFT SUMMARY: PT AOX4, HARD OF HEARING. ARRIVED FROM ED ON 6L OF OXYGEN AND SATTING OKAY. LUNG SOUNDS DIMINISHED AND SOME ACCESSORY MUSCLE USE ON BREATHING. SOILED UNDERWEAR REMOVED, CLEANED, AND ATTENDS PUT ON. PT PLEASANT MOOD AND AFFECT AND COOPERATIVE. ORIENTED TO ROOM, CALL LIGHT IN REACH, AND BED IN LOWEST POSITION. CONTINUING CARE.
--- NOTE | 2024-08-28 18:32 | NUR ---
THIS ROAD PACKER OPERATOR HAS REVIEWED ALL NOTES BY VITALY SONI AND AGREES WITH THEM.
[2024-08-28 20:42] VITALS: BP 132/83
[2024-08-28] MEDS ORDERED: SulfASALazine 500 MG Tab PO SCH (21:00)
[2024-08-28] MEDS ORDERED: Pregabalin 75 MG Cap PO SCH (21:00)
[2024-08-29 02:23] VITALS: BP 184/84
[2024-08-29 02:25] VITALS: BP 163/70
[2024-08-29 05:06] LABS: BASOPHILS PERCENT AUTO 0 % (0-2); EOSINOPHILS PERCENT AUTO 0 % (0-6); Hematocrit 39.4 % (37.0-53.0); Hemoglobin 13.5 g/dL (13.5-17.5); IMMATURE GRAN ABSOLUTE AUTO 0.02 K/mm3 (0.00-0.10); IMMATURE GRAN PERCENT AUTO 1 % (0-1); LYMPHOCYTES PERCENT AUTO 7 % (21-46); MONOCYTES ABSOLUTE AUTO 0.19 K/mm3 (0.16-1.47); MONOCYTES PERCENT AUTO 5 % (4-13); Mean Corpuscular HGB 31.3 pg (26.0-34.0); Mean Corpuscular HGB Conc 34.3 g/dL (31.5-36.5); Mean Corpuscular Volume 91 fL (80-100); Mean Platelet Volume 10.3 fL (9.1-12.4); NEUTROPHILS ABSOLUTE AUTO 3.62 K/mm3 (1.96-9.15); NEUTROPHILS PERCENT AUTO 88 % (41-73); Platelet Count 133 K/mm3 (150-400); RDW Coefficient Variation 11.8 % (11.7-14.2); RDW Standard Deviation 39.7 fL (35.1-46.3); Red Blood Cell Count 4.32 M/mm3 (4.30-5.90); White Blood Cell Count 4.13 K/mm3 (4.00-11.30)
[2024-08-29 05:39] LABS: Bun/Creatinine Ratio 30.4 (12.0-20.0); Calcium, Blood 8.5 mg/dL (8.5-10.1); Creatinine, Blood 0.89 mg/dL (0.60-1.20); Potassium, Blood 3.8 mmol/L (3.5-5.5)
[2024-08-29] MEDS ORDERED: Omeprazole 20 MG CapCR PO SCH (06:00)
--- NOTE | 2024-08-29 06:43 | NUR ---
NO ACUTE CHANGES TO PT STATUS. ON CPAP WITH 3L OXYGEN BLEED IN.
[2024-08-29 08:09] VITALS: BP 157/65
[2024-08-29] MEDS ORDERED: Lisinopril 10 MG Tab PO SCH (09:00)
[2024-08-29] MEDS ORDERED: Sertraline HCl 100 MG Tab PO SCH (09:00)
[2024-08-29] MEDS ORDERED: Enoxaparin 40 MG/0.4 ML SYR SC SCH (09:00)
[2024-08-29] MEDS ORDERED: Remdesivir (EUA) 100 MG in NS 250 ML IV SCH (12:00)
[2024-08-29] MEDS ORDERED: NS 250 ML IV PRN (16:05)
[2024-08-29 16:12] VITALS: BP 124/53
--- NOTE | 2024-08-29 16:49 | NUR ---
SHIFT SUMMARY: PT AOX4 AND ORIENTED TO ROOM. SATTING IN THE MID 90S, RESPIRATORY HAD THEM ON 4L IN THE MORNING, SATS DROPPED TO HIGH 80'S AND BUMPED HIM UP TO 5L AND SATTING WELL. COMPLAINED OF HACKING NONPRODUCTIVE COUGH. MD CALLED AND MEDICATION ORDERED. GIVEN PER EMR. PATIENT STATES HAS SOME ISSUES INHALING BUT THAT IT GOES AWAY QUICKLY. STILL SATTING IN THE LOW 90S ON 5L. PATIENT IN GOOD MOOD AND AFFECT. BED IN LOWEST POSITION AND CALL LIGHT IN REACH. CONTINUING CARE.
--- NOTE | 2024-08-29 17:57 | NUR ---
THIS HOME WEATHERIZING WORKER HAS REVIEWED AND AGREES WITH ALL NOTES AND ASSESSMENTS BY VITALY SONI.
[2024-08-29 19:41] VITALS: BP 118/57
[2024-08-29] MEDS ORDERED: TRIDERM28.4 GM TOP (21:19)
[2024-08-29] MEDS ORDERED: Acetaminophen650 M1 PO (21:30)
[2024-08-30 04:19] VITALS: BP 121/54
[2024-08-30] MEDS ORDERED: MethylPREDNISolone Sod Succ 40 MG VIAL IV SCH (05:00)
--- NOTE | 2024-08-30 05:39 | NUR ---
SHIFT SUMMARY PT A&OX4 AND ANSWERS QUESTIONS APPROPRIATELY. PT SPENT MOST OF SHIFT IN BED WITH EYES CLOSED AND RESPIRATIONS EVEN AND UNLABORED. PT RECEIVED ALL SCHEDULED MEDICATIONS. PT USING CPAP DURING NOC AND MAINTAINS O2 SATS OVER 92%, CONTINUOUS TELEMETRY IN PLACE AND SHOWS NSR. VSS, NO COMPLAINTS OF CP/PRESSURE OR SOB. NO ACUTE EVENTS AT THIS TIME. PT REPOSITIONED INDEPENDENTLY. PT LEFT IN A POSITION OF SAFETY WITH FALL PRECAUTIONS IN PLACE AND CALL LIGHT IN REACH.
[2024-08-30 08:07] VITALS: BP 148/71
--- NOTE | 2024-08-30 17:59 | NUR ---
SHIFT SUMMARY PATIENT A/OX4, ABLE TO MAKE NEEDS KNOWN. PATIENT PARTICIAPTED IN OCCUPATIONAL THERAPY TODAY, 2 PERSON ASSIST WITH GAITBELT AND WALKER. RECOMMENDATION TO DC TO SNF. CONTINUOUS PULSE OX IN PLACE, 3 L CHRONIC OXYGEN USE VIA NASAL CANNULA. PATIENT CURRENTLY TITRATED TO 5LPM, INCREASE NEED FOR SUPPLEMENTAL OXYGEN FROM THIS AM. CONTINUES IV ABX AND REMDSIVIR. PATIENT REQUESTED TO SPEAK WITH PALLIATIVE CARE NURSE THIS AM, PALLIATIVE CARE NURSE CALLED X2 THIS SHIFT. WILL FOLLOW UP TOMORROW REGARDING PATIENT'S QUESTIONS FOR PALLIATIVE/HOSPICE CARE AT HOME. NO OTHER CONCERNS AT THIS TIME.
[2024-08-30 19:37] VITALS: BP 121/45
[2024-08-31 03:08] VITALS: BP 120/62
[2024-08-31 06:51] VITALS: BP 141/67
[2024-08-31 07:34] VITALS: BP 148/66
--- NOTE | 2024-08-31 07:36 | NUR ---
TELEMETRY CALLED TO STATE PATIENT CONTINUES TO CONVERT FROM IDIOVENTRICULAR RHYTHYM TO SINUS AND BACK. MD INFORMED AND REQUESTED TO DISCONTINUE TELEMETRY IF PATIENT ASYMPTOMATIC. PATIENT RESTING IN BED, DENIES ANY CHEST PAIN OR DISCOMFORT, VITAL SIGNS STABLE. PATIENT REMAINS ASYMPTOMATIC, TELEMETRY DISCONTINUED.
--- NOTE | 2024-08-31 08:11 | NUR ---
SHIFT SUMMARY PT IS A&OX4, PLEASANT AND COOPERATIVE WITH CARES. VSS ON 4L NC, CPAP ON WHILE ASLEEP. PER TELEMETRY PT IS SR @ 84 WITH PVC'S. TELE CALLED THIS MORNING AROUND 0645 TO STATES HE WAS GOING IN AND OUT OF EXCELERATED IDIOVENTRICULAR RHYTHM, HR REMAINS AT 66 BPM. WHEN ARRIVING TO CHECK ON PT HE WAS ASLEEP. VSS, NO CHANGES, ASYMPTOMATIC. ECG DONE, DR SIMMONS CALLED, NO NEW ORDERS GIVEN. PT IS TOLERATING A HEART HEALTHY DIET. PT USES URINAL INDEPENDENTLY IN BED, VOIDING ADEQUATE AMOUNTS OF DARK YELLOW URINE. NO BM THIS SHIFT. NOOB THIS SHIFT. ABLE TO REPOSITION SELF IN BED. ENHANCED PRECAUTIONS MAINTAINED FOR COVID. BED IN LOWEST POSITION, CALL LIGHT WITHIN REACH. 'BUD' USES HIS CALL LIGHT APPROPRIATELY.
[2024-08-31] MEDS ORDERED: PredniSONE 20 MG Tab PO SCH (09:00)
[2024-08-31 15:38] VITALS: BP 153/72
[2024-08-31 19:16] VITALS: BP 145/65
--- NOTE | 2024-08-31 19:24 | NUR ---
SHIFT SUMMARY PATIENT A/OX4, ABLE TO MAKE NEEDS KNOWN. PLEASANT AND COOPERATIVE WITH CARE. TWO PERSON ASSIST WITH TRANSFERS, WAS ABLE TO GET IN THE RECLINER THIS AFTERNOON FOR MEALS. TELEMETRY DISCONTINUED THIS TODAY, PIC DRESSING REPLACED. PATIENT ON 4L NASAL CANNULA, 3 LPM IS BASELINE. COMPLAINING OF DRY NON PRODUCTIVE COUGH, PRN COUGH MEDICATION ADMINSITERED PER JAN. MEPLEX PLACED TO RIGHT HAND SKIN TEAR. NO OTHER CONCERNS AT THIS TIME.
--- NOTE | 2024-09-01 04:38 | NUR ---
SHIFT SUMMARY PATIENT HAD NO ACUTE CHANGES. AXOX 4 AND 2 ASSIST TO BSC. DENIES CHEST PAIN, SOB, AND N/V. ON 4L O2 NC AND 3L BASELINE. USES CPAP AT NIGHT. VSS/AFEBRILE. CALL LIGHT IN REACH. BED IN LOWEST POSITION. WILL CONTINUE TO MONITOR UNTIL DAY SHIFT NURSE ASSUMES CARE.
[2024-09-01 05:30] LABS: BASOPHILS PERCENT AUTO 0 % (0-2); EOSINOPHILS ABSOLUTE AUTO 0.01 K/mm3 (0.00-0.68); EOSINOPHILS PERCENT AUTO 0 % (0-6); Hematocrit 36.9 % (37.0-53.0); Hemoglobin 12.4 g/dL (13.5-17.5); IMMATURE GRAN ABSOLUTE AUTO 0.05 K/mm3 (0.00-0.10); IMMATURE GRAN PERCENT AUTO 1 % (0-1); LYMPHOCYTES ABSOLUTE AUTO 0.73 K/mm3 (0.84-5.20); LYMPHOCYTES PERCENT AUTO 13 % (21-46); MONOCYTES ABSOLUTE AUTO 0.55 K/mm3 (0.16-1.47); MONOCYTES PERCENT AUTO 10 % (4-13); Mean Corpuscular HGB 31.2 pg (26.0-34.0); Mean Corpuscular HGB Conc 33.6 g/dL (31.5-36.5); Mean Corpuscular Volume 93 fL (80-100); Mean Platelet Volume 10.1 fL (9.1-12.4); NEUTROPHILS ABSOLUTE AUTO 4.34 K/mm3 (1.96-9.15); NEUTROPHILS PERCENT AUTO 76 % (41-73); Platelet Count 156 K/mm3 (150-400); RDW Coefficient Variation 12.1 % (11.7-14.2); RDW Standard Deviation 41.8 fL (35.1-46.3); Red Blood Cell Count 3.98 M/mm3 (4.30-5.90); White Blood Cell Count 5.68 K/mm3 (4.00-11.30)
[2024-09-01 06:07] LABS: Albumin, Blood 2.7 g/dL (3.4-5.0); Albumin/Globulin Ratio 0.8 (0.8-1.8); Bilirubin, Total 0.3 mg/dL (0.1-1.0); Bun/Creatinine Ratio 25.6 (12.0-20.0); Calcium, Blood 8.5 mg/dL (8.5-10.1); Creatinine, Blood 0.98 mg/dL (0.60-1.20); Globulin, Blood 3.4 g/dL (2.2-4.0); Potassium, Blood 3.6 mmol/L (3.5-5.5); Total Protein, Blood 6.1 g/dL (6.4-8.2)
[2024-09-01 06:31] VITALS: BP 157/53
[2024-09-01 07:37] VITALS: BP 165/73
[2024-09-01 15:32] VITALS: BP 190/72
[2024-09-01] MEDS ORDERED: Benzonatate 100 MG Cap PO PRN (15:45)
[2024-09-01] MEDS ORDERED: Labetalol HCL 5 MG/ML 4ML Injection (Single Dose) IV PRN (15:50)
[2024-09-01] MEDS ORDERED: Furosemide 10 MG/ML 4ML Vial IV ONE (16:00)
[2024-09-01] MEDS ORDERED: GuaiFENesin 600 MG TabCR PO SCH (16:00)
[2024-09-01 17:22] VITALS: BP 132/66
[2024-09-01 19:40] VITALS: BP 148/72
--- NOTE | 2024-09-01 20:26 | NUR ---
SHIFT SUMMARY- PT HAD AN EVENTFUL DAY. HE HAD A COUGHING FIT EARLY IN THE DAY WITH A HARSH, NONPRODUCTIVE, PARDOXICAL COUGH. SPOKE TO ON MORNING ROUNDS THE PT O2 REQUIREMENT THAT WAS AT 3L LAST NIGHT AND 5L THIS AM AT SHIFT CHANGE, IS NOW UP TO 15L VIA SULLY FLOW NC COMBINED WITH THE OXIMASK. ON 8L VIA HIGH FLOW WITH 7L VIA OXIMASK, COUGH SYRUP WAS INNEFFECTIVE. EVENTUALLY RECIEVED ORDER FOR PO TESSALON PEARLS. O2 REQUIREMENTS WERE TITRATED DOWN TO 12L VIA HIGH FLOW TO MAINTAIN SATS 90-91% PT REQUESTED TO TRY THE TESSALON PEARLS AT CHANGE OF SHIFT. PT IN BED, CALL LIGHT IN REACH NO S&S OF DISTRESS NOTED AT THE TIME OF BEDSIDE REPORT.
[2024-09-02 04:23] VITALS: BP 150/66
--- NOTE | 2024-09-02 06:39 | NUR ---
Shift Summary PT on 12L high flow NC at the start of the shift. Around 0000 he was c/o difficulty breathing, especially inhaling. O2 Sat was falling below 82% on only high flow, I put him on oxymizer mask as well as high flow NC then called Called RT who did a breathing treatment and then put him on CPAP w/ 15L bleed in. CPAP reduced effort of breathing and managed symptoms well, pt was able to sleep after CPAP was applied. I titrated him down to 12L bleed in w/ cpap this morning and his O2 sat is holding around 91-93%.
[2024-09-02 07:42] VITALS: BP 149/69
[2024-09-02 09:11] LABS: BASOPHILS ABSOLUTE AUTO 0.01 K/mm3 (0.00-0.23); BASOPHILS PERCENT AUTO 0 % (0-2); EOSINOPHILS ABSOLUTE AUTO 0.08 K/mm3 (0.00-0.68); EOSINOPHILS PERCENT AUTO 1 % (0-6); Hematocrit 41.3 % (37.0-53.0); Hemoglobin 13.7 g/dL (13.5-17.5); IMMATURE GRAN ABSOLUTE AUTO 0.14 K/mm3 (0.00-0.10); IMMATURE GRAN PERCENT AUTO 2 % (0-1); LYMPHOCYTES ABSOLUTE AUTO 0.94 K/mm3 (0.84-5.20); LYMPHOCYTES PERCENT AUTO 11 % (21-46); MONOCYTES PERCENT AUTO 10 % (4-13); Mean Corpuscular HGB 31.3 pg (26.0-34.0); Mean Corpuscular HGB Conc 33.2 g/dL (31.5-36.5); Mean Corpuscular Volume 94 fL (80-100); Mean Platelet Volume 10.6 fL (9.1-12.4); NEUTROPHILS ABSOLUTE AUTO 6.49 K/mm3 (1.96-9.15); NEUTROPHILS PERCENT AUTO 77 % (41-73); Platelet Count 216 K/mm3 (150-400); RDW Coefficient Variation 12.2 % (11.7-14.2); RDW Standard Deviation 42.6 fL (35.1-46.3); Red Blood Cell Count 4.38 M/mm3 (4.30-5.90); White Blood Cell Count 8.46 K/mm3 (4.00-11.30)
[2024-09-02 09:34] LABS: Albumin, Blood 3.1 g/dL (3.4-5.0); Albumin/Globulin Ratio 0.8 (0.8-1.8); Bilirubin, Total 0.4 mg/dL (0.1-1.0); Bun/Creatinine Ratio 27.3 (12.0-20.0); Calcium, Blood 8.7 mg/dL (8.5-10.1); Creatinine, Blood 0.92 mg/dL (0.60-1.20); Globulin, Blood 3.8 g/dL (2.2-4.0); Potassium, Blood 3.5 mmol/L (3.5-5.5); Total Protein, Blood 6.9 g/dL (6.4-8.2)
[2024-09-02] MEDS ORDERED: Lidocaine HCl 4% 5 ML SDA INH PRN (11:55)
[2024-09-02 16:47] VITALS: BP 163/75
--- NOTE | 2024-09-02 18:48 | NUR ---
PATIENT IS A&OX4, PLEASANT AND COOPERATIVE WITH CARES. PATIENTS O2 TITRATED DOWN FROM 15L TO 3L, PATIENT IS 92% ON 3L. PATIENT SEEN BY PT AND OT TODAY, SBAX1. PATIENT USES URINAL INDEPENDENTLY. PATIENTS BED IS IN LOW POSITION AND CALL LIGHT IS WITHIN REACH.
[2024-09-02 21:47] VITALS: BP 150/53
[2024-09-03 04:29] VITALS: BP 145/78
[2024-09-03] MEDS ORDERED: Ipratropium/Albuterol SulF 2.5-0.5MG/3 ML Amp INH SCH (06:10)
--- NOTE | 2024-09-03 06:37 | NUR ---
Shift Summary Pt on 3L hi flow NC while awake and CPAP w/ 5L bleed in while asleep. He maintaned O2 sat > 90% throughout the night with no desaturation events or coughing fits with difficulty breathing like yesterday. Pt states he slept the best he has since arriving here. No c/o of pain or discomforts.
[2024-09-03 08:13] VITALS: BP 169/63
[2024-09-03] MEDS ORDERED: PredniSONE 20 MG Tab PO SCH (09:00)
[2024-09-03 16:28] VITALS: BP 165/71
--- NOTE | 2024-09-03 19:06 | NUR ---
SHIFT SUMMARY: PATIENT IS A&OX4, PLEASANT AND COOPERATIVE WITH CARES. PATIENTS O2 94% ON 3L. AMBULATES SBAX1 WITH GB. USES URINAL INDEPENDENTLY. PLAN IS POSSIBLE DISCHARGE TOMORROW 09/04. PATIENTS BED IS IN LOW POSITION AND CALL LIGHT IS WITHIN REACH.
[2024-09-03 19:30] VITALS: BP 145/66
[2024-09-04 02:27] VITALS: BP 136/54
[2024-09-04 07:37] VITALS: BP 149/113
[2024-09-04] MEDS ORDERED: Sennosides 8.6 MG Tab PO SCH (11:10)
[2024-09-04] MEDS ORDERED: Furosemide 10 MG/ML 4ML Vial IV SCH (14:00)
[2024-09-04] MEDS ORDERED: Lisinopril 10 MG Tab PO ONE (14:05)
[2024-09-04 15:41] VITALS: BP 147/55
--- NOTE | 2024-09-04 16:43 | NUR ---
SUMMARY- PT A/O X4, UP IN CHAIR MOST OF THE DAY. PT'S OXYGEN HUMIDIFIED 3L SATS 88-90%, 93-95% IN FULL RESTING STATE. DESATS 80% WITH MIN ACTIVITY OF EATING A MEAL OR UP TO BEDSIDE COMMODE- 1-2 PERSON GAIT BELT WALKER, PT IS VERY WEAK AND DECONDITIONED. NOT ABLE TO AMBULATE ANY SIGNIFICANT DISTANCE. OXYGEN INCREASED TO 6L FOR BRIEF PERIODS AND DEEP BREATH COACHING, SLOW DEEPLY THROUGH NOSE OUT MOUTH. RN STARTED PT ON FLUTTER VALVE. ENV COUGH AND DEEP BREATH. PT HAS A HARSH, COARSE COUGH WITH MIN PRODUCTION. PT IS RECEIVING MUCINEX. ALSO MEDICATED MID-DAY WITH GUIAFENNISIN/CODENEN. ENCOURAGED WATER CONSUMPTION. DR LAZO INCREASED LISINOPRIL TODAY AND STARTED PT ON LASIX. DR SIMMONS SPOKE WITH DR NEREYDA MEDINA, [facility]. HAVE NOT SEEN DR MEDINA COME TO SEE PT YET THIS SHIFT. PT AGREED WITH DR SIMMONS IT MAY BE BETTER HE GO TO SNF FOR A FEW WEEKS FOR STRENGTHENING. MEDICATED WITH SENEKOT TO START BOWEL CARE, NO BM SINCE ADMIT WILL REPORT TO NOC VITALY
[2024-09-04] MEDS ORDERED: Bisacodyl 5 MG TabEC PO PRN (16:55)
[2024-09-04 20:30] VITALS: BP 154/58
[2024-09-05 03:03] VITALS: BP 134/54
--- NOTE | 2024-09-05 06:24 | NUR ---
Patient alert and oriented, VSS, resting comfortably in bed on 3L oxygen via nasal cannula. Patient voiding in urinal frequently, wicking male external catheter system setup and attached to patient per his request, tolerating well. CPAP with 3L oxygen bleed-in used while sleeping overnight. COVID enhanced airborne precautions maintained.
[2024-09-05 07:37] VITALS: BP 143/70
[2024-09-05 08:45] LABS: BASOPHILS ABSOLUTE AUTO 0.03 K/mm3 (0.00-0.23); BASOPHILS PERCENT AUTO 0 % (0-2); EOSINOPHILS ABSOLUTE AUTO 0.16 K/mm3 (0.00-0.68); EOSINOPHILS PERCENT AUTO 2 % (0-6); Hematocrit 41.2 % (37.0-53.0); Hemoglobin 13.6 g/dL (13.5-17.5); IMMATURE GRAN ABSOLUTE AUTO 0.44 K/mm3 (0.00-0.10); IMMATURE GRAN PERCENT AUTO 5 % (0-1); LYMPHOCYTES ABSOLUTE AUTO 1.26 K/mm3 (0.84-5.20); LYMPHOCYTES PERCENT AUTO 14 % (21-46); MONOCYTES ABSOLUTE AUTO 0.72 K/mm3 (0.16-1.47); MONOCYTES PERCENT AUTO 8 % (4-13); Mean Corpuscular Volume 94 fL (80-100); Mean Platelet Volume 9.4 fL (9.1-12.4); NEUTROPHILS PERCENT AUTO 70 % (41-73); Platelet Count 296 K/mm3 (150-400); RDW Coefficient Variation 12.3 % (11.7-14.2); RDW Standard Deviation 42.5 fL (35.1-46.3); Red Blood Cell Count 4.39 M/mm3 (4.30-5.90); White Blood Cell Count 8.81 K/mm3 (4.00-11.30)
[2024-09-05] MEDS ORDERED: Lisinopril 20 MG Tab PO SCH (09:00)
[2024-09-05] MEDS ORDERED: Furosemide 10 MG/ML 4ML Vial IV SCH (09:00)
[2024-09-05 09:16] LABS: C-REACTIVE PROTEIN, EXT RANGE 2.61 mg/dL (0.000-0.300)
[2024-09-05 09:18] LABS: Albumin, Blood 2.9 g/dL (3.4-5.0); Albumin/Globulin Ratio 0.8 (0.8-1.8); Bilirubin, Total 0.7 mg/dL (0.1-1.0); Bun/Creatinine Ratio 29.4 (12.0-20.0); Calcium, Blood 8.8 mg/dL (8.5-10.1); Creatinine, Blood 0.95 mg/dL (0.60-1.20); Globulin, Blood 3.8 g/dL (2.2-4.0); Total Protein, Blood 6.7 g/dL (6.4-8.2)
[2024-09-05 14:53] VITALS: BP 136/62
[2024-09-05 19:53] VITALS: BP 124/56
[2024-09-06 02:23] VITALS: BP 126/54
--- NOTE | 2024-09-06 03:45 | NUR ---
SHIFT SUMMARY PT IS A&O X4, PLEASANT AND COOPERATIVE WITH CARE. PT IS ABLE TO MAKE HIS NEEDS KNOWN. O2 @3LITERS VIA NASAL CANNULA, AND CPAP IN USE AT NIGHT TIME. PT DENIES PAIN AND DISCOMFORT. PT REQUESTED PRN COUGH SYRUP AT HS, C/O "COUGHING THAT WON'T STOP." PT IS EAGER TO D/C TODAY, REPORTS FEELING BETTER. MALE PUREWICK IN PLACE, DRAINING YELLOW COLOR URINE. NO COMPLAINTS OFFERED DURING THIS SHIFT, VSS. BED AT THE LOWEST POSITION, CALL LIGHT WITHIN REACH. NO ACUTE EVENTS DURING THIS SHIFT.
[2024-09-06 06:04] LABS: BASOPHILS ABSOLUTE AUTO 0.01 K/mm3 (0.00-0.23); BASOPHILS PERCENT AUTO 0 % (0-2); EOSINOPHILS ABSOLUTE AUTO 0.11 K/mm3 (0.00-0.68); EOSINOPHILS PERCENT AUTO 1 % (0-6); Hemoglobin 12.5 g/dL (13.5-17.5); IMMATURE GRAN ABSOLUTE AUTO 0.39 K/mm3 (0.00-0.10); IMMATURE GRAN PERCENT AUTO 5 % (0-1); LYMPHOCYTES ABSOLUTE AUTO 1.39 K/mm3 (0.84-5.20); LYMPHOCYTES PERCENT AUTO 17 % (21-46); MONOCYTES ABSOLUTE AUTO 0.62 K/mm3 (0.16-1.47); MONOCYTES PERCENT AUTO 8 % (4-13); Mean Corpuscular HGB 31.1 pg (26.0-34.0); Mean Corpuscular HGB Conc 32.9 g/dL (31.5-36.5); Mean Corpuscular Volume 95 fL (80-100); Mean Platelet Volume 9.7 fL (9.1-12.4); NEUTROPHILS ABSOLUTE AUTO 5.76 K/mm3 (1.96-9.15); NEUTROPHILS PERCENT AUTO 70 % (41-73); Platelet Count 295 K/mm3 (150-400); RDW Coefficient Variation 12.3 % (11.7-14.2); RDW Standard Deviation 43.1 fL (35.1-46.3); Red Blood Cell Count 4.02 M/mm3 (4.30-5.90); White Blood Cell Count 8.28 K/mm3 (4.00-11.30)
[2024-09-06 06:41] LABS: Bun/Creatinine Ratio 30.4 (12.0-20.0); Calcium, Blood 8.2 mg/dL (8.5-10.1); Creatinine, Blood 1.02 mg/dL (0.60-1.20); Potassium, Blood 4.1 mmol/L (3.5-5.5)
[2024-09-06 08:04] VITALS: BP 160/70
[2024-09-06] MEDS ORDERED: ALBU2.5V5 INH (15:16)
[2024-09-06] MEDS ORDERED: BENZ100A PO (15:22)
[2024-09-06] MEDS ORDERED: GUAI600T33 PO (15:23)
[2024-09-06] MEDS ORDERED: LISI20 PO (15:23)
[2024-09-06] MEDS ORDERED: Prednisone10 MG PO (15:26)
--- NOTE | 2024-09-06 18:16 | NUR ---
MD CONTACTED DUE TO SPO2 DROPPING TO 72%. TITRATED OXYGEN TO 10 LPM VIA NASAL CANNULA UNTIL PATIENT SPO2 RETURNED WNL. PATIENT STATES FEELING LIKE "HE CAN'T CATCH HIS BREATH". BARKING, HACKING COUGH NOTED, MD ORDERED SPEECH EVALUATION FOR PATIENT. COUGH SYRUP AND TESSALON PEARLES ADMINISTERED. PATIENT CURRENTLY ON 6 LPM VIA NASAL CANNULA SPO2 89-92 %.
--- NOTE | 2024-09-06 18:22 | NUR ---
SHIFT SUMMARY PATIENT A/OX4, ABLE TO MAKE NEEDS KNOWN. PLEASANT AND COOPERATIVE WITH CARE. PLAN WAS TO DISHCARGE TODAY AND LEAVE TO [facility], WHILE AWAITING FOR HIS TRANSPORTATION AND OXYGEN DELIVERY PATIENT'S SPO2 DROPPED TO 72%, CURRENTLY PATIENT IS ON 6 LPM VIA NASAL CANNULA, PRN COUGH MED GIVEN PER JAN. PATIENT SPO2 REMAINS WNL ON 6 LPM. PATIENT WITH RESPIRATORY THERAPY PROVIDING NEBS AND HOME O2 EVAL COMPLETED TODAY, PATIENT NEEDING 4 LPM EARLIER THIS SHIFT PRIOR TO POSSIBLE ASPIRATION EVENT DURING DINNER. CAREGIVER IS AT BEDSIDE, DAUGHTER GUILHERME UPDATED OF PLAN VIA TELEPHONE. PIV HAS BEEN REMOVED DUE TO DISCHARGE ORDER IN PLACE. CONTINUOUS PULSE OX IN PLACE, NO OTHER CONCERNS AT THIS TIME.
[2024-09-06 19:18] VITALS: BP 116/57
[2024-09-07 02:26] VITALS: BP 119/61
--- NOTE | 2024-09-07 04:15 | NUR ---
SHIFT SUMMARY NO ACUTE EVENTS/DISTRESS DURING THIS SHIFT. O2 CONTINUOUS PULSE OXIMETER O2>95-97% ON 4L BLEED IN WITH C-PAP. NO COUGH NOTED. PT DENIES PAIN. LUNG SOUNDS DIMINISHED ON BASES PER AUSCULTATION. PT RESTING WELL T/O THE NIGHT HRS. PUREWICK IN PLACE. PT IS ABLE TO MAKE HIS NEEDS KNOWN, AND IS COOPERATIVE WITH CARE. PLEASANT. BED AT THE LOWEST POSITION, CALL LIGHT WITHIN REACH. PT STATES WOULD LIKE TO D/C TODAY AND HAVE [facility] DELIVER HOME O2 TODAY.
[2024-09-07 06:01] LABS: BASOPHILS ABSOLUTE AUTO 0.01 K/mm3 (0.00-0.23); BASOPHILS PERCENT AUTO 0 % (0-2); EOSINOPHILS PERCENT AUTO 1 % (0-6); Hematocrit 39.2 % (37.0-53.0); Hemoglobin 12.9 g/dL (13.5-17.5); IMMATURE GRAN PERCENT AUTO 4 % (0-1); LYMPHOCYTES ABSOLUTE AUTO 1.43 K/mm3 (0.84-5.20); LYMPHOCYTES PERCENT AUTO 18 % (21-46); MONOCYTES ABSOLUTE AUTO 0.51 K/mm3 (0.16-1.47); MONOCYTES PERCENT AUTO 7 % (4-13); Mean Corpuscular HGB 31.1 pg (26.0-34.0); Mean Corpuscular HGB Conc 32.9 g/dL (31.5-36.5); Mean Corpuscular Volume 95 fL (80-100); Mean Platelet Volume 9.4 fL (9.1-12.4); NEUTROPHILS ABSOLUTE AUTO 5.42 K/mm3 (1.96-9.15); NEUTROPHILS PERCENT AUTO 70 % (41-73); Platelet Count 281 K/mm3 (150-400); RDW Coefficient Variation 12.4 % (11.7-14.2); RDW Standard Deviation 42.9 fL (35.1-46.3); Red Blood Cell Count 4.15 M/mm3 (4.30-5.90); White Blood Cell Count 7.77 K/mm3 (4.00-11.30)
[2024-09-07 06:29] LABS: Albumin, Blood 2.8 g/dL (3.4-5.0); Albumin/Globulin Ratio 0.8 (0.8-1.8); Bilirubin, Total 0.6 mg/dL (0.1-1.0); Bun/Creatinine Ratio 32.7 (12.0-20.0); Calcium, Blood 8.8 mg/dL (8.5-10.1); Creatinine, Blood 0.83 mg/dL (0.60-1.20); Globulin, Blood 3.6 g/dL (2.2-4.0); Potassium, Blood 4.1 mmol/L (3.5-5.5); Total Protein, Blood 6.4 g/dL (6.4-8.2)
[2024-09-07 07:57] VITALS: BP 138/63
--- NOTE | 2024-09-07 08:53 | NUR ---
SPOKE WITH PATIENT'S DAUGHTER. GUILHERME, VIA TELEPHOEN REGARDING SPEECH EVALUATION AND PATIENT'S CURRENT STATUS. INFORMED HER SPO2 WNL IN MID 90s THIS SHIFT THUS FAR ON 4 LPM VIA NASAL CANNULA. NO OTHER CONCERNS AT THIS TIME. STATED I WOULD CALL TO INFORM HER OF ANY UPDATES THROUGHOUT THE DAY.
--- NOTE | 2024-09-07 11:41 | NUR ---
DISCHARGE NOTE PATIENT A/OX4 ABLE TO MAKE NEEDS KNOWN. SPO2 REMAINS ABOVE 88% ON 4 LPM. DYSPNEA WITH EXERTION, EDUCATED PATIENT TO TAKE HIS TIME WITH ADLs AND ENSURE HE IS BREATHING THROUGH HIS NOSE WHEN USING NASAL CANNULA. ALSO EDUCATED TO USE SPO2 MONITOR WHILE TRANSFERRING TO MONITOR OXYGEN SATURATION. PATIENT'S CAREGIVER, ILDEFONSO, AT BEDSIDE [facility] EDUCATION AND BOTH PROVIDED DISCHARGE INSTRUCTIONS [facility] FOLLOW UP APPOINTMENTS. MEDICATIONS FAXED TO [facility] YESTEREDAY AFTERNOON. PATIENT WITH NO PIV AND CONTINUOUS PULSE OX REMOVED PRIOR TO DISCHARGE. HOME OXYGEN TANK PROVIDED BY [facility] PRIOR TO DISCHARGE. PATIENT ASSISTED TO CAREGIVER'S VEHICLE VIA WHEELCHAIR WITH ALL BELONGINGS IN HAND BYT THIS RN.
== END 2024-09-07 11:38 | disposition home health service (06) | DRG 177 ==
LOC: ER 05:55 → MEDS 11:25
PROVIDERS: Emergency Medicine; Internal Medicine; ADMIT Internal Medicine
PROC: 5A09357 Assistance with Respiratory Ventilation, Less than 24 Consecutive Hours, Continuous Positive Airway Pressure (ICD-10-PCS; principal; 2024-08-28)
PROC: XW033E5 Introduction of Remdesivir Anti-infective into Peripheral Vein, Percutaneous Approach, New Technology Group 5 (ICD-10-PCS; 2024-08-28)
DX: U07.1 COVID-19 (principal); J12.82 Pneumonia due to coronavirus disease 2019; J96.21 Acute and chronic respiratory failure with hypoxia; J44.1 Chronic obstructive pulmonary disease with (acute) exacerbation; J44.0 Chronic obstructive pulmonary disease with (acute) lower respiratory infection; I24.89 Other forms of acute ischemic heart disease; I10 Essential (primary) hypertension; E78.00 Pure hypercholesterolemia, unspecified; G47.00 Insomnia, unspecified; G62.9 Polyneuropathy, unspecified; M06.9 Rheumatoid arthritis, unspecified; N40.0 Benign prostatic hyperplasia without lower urinary tract symptoms; F32.A Depression, unspecified; G47.33 Obstructive sleep apnea (adult) (pediatric); R73.03 Prediabetes; Z99.81 Dependence on supplemental oxygen; Z87.891 Personal history of nicotine dependence; Z79.899 Other long term (current) drug therapy; Z98.890 Other specified postprocedural states; Z66 Do not resuscitate; Z79.2 Long term (current) use of antibiotics; Z79.811 Long term (current) use of aromatase inhibitors
CPT/HCPCS: 36415; 71045; 80048; 80053; 83880; 84145; 84484; 85025; 86140; 92610; 93005; 93010; 93306; 94640; 94660; 94664; 94761; 94762; 96374; 97110; 97162; 97166; 97530; 97535; 99285-25; A9270; C9399; J0248; J0696; J1650; J1940; J2919; J7050; J7512